=== PATIENT | female | born 1995 | race Caucasian/White ===

== ENCOUNTER 2020-01-19 13:54 | Emergency (ER) | payer OTHER ==
[~2020-01-19] VITALS: Ht 160 cm; Wt 53.1 kg
[2020-01-19 14:01] VITALS: BP 122/83; Ht 160 cm; Wt 53.1 kg
== END 2020-01-19 14:29 | disposition home or self-care (01) ==
LOC: ED 13:54
DX: B34.9 Viral infection, unspecified (principal); H61.23 Impacted cerumen, bilateral